=== PATIENT | male | born 1980 | race Caucasian/White ===

== ENCOUNTER 2018-10-31 06:03 | Day surgery (SDC) | payer OTHER ==
[2018-10-26 13:31] VITALS: BMI 34.8
--- NOTE | 2018-10-30 09:01 | HP ---
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 He has had no specific injury. He has had persistent symptoms despite restriction of activities, anti-inflammatory medications, and splinting. His symptoms are now interfering with day-to-day activities and also sleeping. PAST MEDICAL HISTORY: The patient is otherwise in good health. He does have a history of some neck pain, radiating into his right shoulder, but this is relatively minor. He has history of high cholesterol. CURRENT MEDICATIONS: Include: 1. Lipitor. 2. Meloxicam. 3. Finasteride. ALLERGIES: HE HAS NO KNOWN ALLERGIES. FAMILY HISTORY: Otherwise unremarkable. SOCIAL HISTORY: Otherwise unremarkable. REVIEW OF SYSTEMS: Otherwise unremarkable. PHYSICAL EXAMINATION: GENERAL: Reveals a healthy male. HEENT: Unremarkable. NECK: Supple. CHEST: Clear. HEART: Regular rate and rhythm. ABDOMEN: Soft, nontender. RECTAL: Deferred. GENITAL: Deferred. EXTREMITIES: Pertinent findings related to the right wrist. There is no swelling. There is no atrophy. There are no open wounds. There is no point tenderness. There is full range of motion. Motor exam is intact. There is subjective numbness in median nerve distribution. There is a negative Tinel sign and positive Phalen's test. There is good capillary refill and palpable distal pulses. DIAGNOSTIC STUDIES: Electrodiagnostic studies reveal [id number] right carpal tunnel syndrome and some evidence of chronic right C5 radiculopathy without nerve denervation. IMPRESSION: The right carpal tunnel syndrome, possible component of cervical radiculopathy. PLAN: Endoscopic possible open right carpal tunnel release. The nature of the surgery, length of recovery, potential complications such as infection, loss of motion, incomplete relief, nerve injury, recurrence, need for additional treatment, repeat surgery were discussed in detail. He would require further evaluation and workup, if he is still experiencing symptoms related to his cervical spine. Job ID: [id number]
[2018-10-31] MEDS ORDERED: ceFAZolin Sodium 2 GM/100 ML BAG ONE (06:35)
[2018-10-31] MEDS ORDERED: Lidocaine 1% (PF) 30 ML VIAL ONE (06:40)
[2018-10-31] MEDS ORDERED: Midazolam HCl 2 mg/2 ml Vial ONE (07:33)
[2018-10-31] MEDS ORDERED: Fentanyl 100 MCG/2 ML VIAL ONE (07:33)
--- NOTE | 2018-10-31 11:19 | OP ---
DATE OF PROCEDURE: 10/31/2018 ANESTHESIA: General plus local. PREOPERATIVE DIAGNOSIS: Right carpal tunnel syndrome. POSTOPERATIVE DIAGNOSIS: Right carpal tunnel syndrome. PROCEDURE: Right endoscopic carpal tunnel release. DESCRIPTION OF PROCEDURE: After satisfactory anesthesia was in induced supine position, the patient was prepped and draped in routine manner. A field block with 1% plain lidocaine was accomplished with 10 mL. The right arm was elevated. Esmarch bandage and the tourniquet inflated to 250 mmHg. A 2 cm transverse incision was made in proximal wrist flexor crease. This was carried down through the subcutaneous tissues and bleeding points controlled with Bovie cautery. Using sharp and blunt dissection, a distally based flap at the deep forearm fascia was developed and retracted distally. Palmaris longus tendon was retracted radially. Proximal edge of the deep forearm fascia was split under direct visualization with small scissors to make sure there was no proximal impingement of the median nerve. Synovial elevator was introduced beneath the transverse carpal ligament and the synovium was cleaned from the under surface. Carpal tunnel dilators were inserted. The [employer] endoscopic carpal tunnel system was introduced beneath the transverse carpal ligament in line with the ring finger. . The distal edge of the ligament was easily identified and then divided in a distal to proximal direction by pulling the trigger of the assembly and engaging the knife and withdrawing the scope proximally. This was done at several stages to make sure there was complete division of the transverse carpal ligament, which was documented with the video printer. After withdrawing the scope, a carpal tunnel dilator could be inserted into the carpal tunnel and there was marked improved passage and subcutaneous position of the instrument. The scope was reintroduced into the carpal tunnel. There was wide separation of the two leaves of the transverse carpal ligament. The tourniquet was released after 6 minutes. There was no excessive bleeding when the scope was withdrawn. The wound was irrigated and then closed with running subcuticular 3-0 nylon. A sterile dressing was applied and the patient immobilized in a Velcro wrist splint. He was awakened and taken to the operating room in stable condition. There were no apparent intraoperative complications. The estimated blood loss was negligible. The patient will be discharged home in satisfactory condition with an ice elevation and given written wound care instructions. He was given prescription for [place] 5, 24 tablets. He will be rechecked in my office in 10 to 14 days or sooner if there are any problems prior to that time. Job ID: [id number]
[2018-10-31] MEDS ORDERED: PROPOFOL 200 MG/20 ML VIAL ONE (15:08)
[2018-10-31] MEDS ORDERED: Lidocaine 1% PF 5 ML VIAL ONE (15:08)
[2018-10-31] MEDS ORDERED: Ondansetron PF 4 MG/2 ML Vial ONE (15:08)
== END 2018-10-31 09:18 | disposition home or self-care (01) ==
LOC: SDC 06:03
PROVIDERS: ATTEND Orthopaedic Surgery
PROC: 01N54ZZ Release Median Nerve, Percutaneous Endoscopic Approach (ICD-10-PCS; principal; 2018-10-31)
DX: G56.01 Carpal tunnel syndrome, right upper limb (principal); E78.00 Pure hypercholesterolemia, unspecified; Z79.899 Other long term (current) drug therapy
CPT/HCPCS: J0690; J2001; J2250; J2405; J2704; J3010

== ENCOUNTER 2021-09-06 14:48 | Outpatient (CLI) | payer BC ==
[2021-09-06 15:35] LABS: #Basophils 0.1 10x3/uL (0.0-0.2); #Eosinphils 0.2 10x3/uL (0.0-0.5); #Monocytes 0.8 10x3/uL (0.0-1.1); #Neutrophils 4.2 10x3/uL (1.5-8.4); %Basophils 0.6 % (0.0-2.0); %Lymphocytes 34.9 % (18.0-47.0); %Monocytes 9.7 % (0.0-10.0); %Neutrophils 52.4 % (40.0-75.0); Hemoglobin 15.9 g/dL (13.5-17.5); Mean Corpuscular HGB CONC 34.3 g/dL (32.0-36.0); Mean Corpuscular Hemoglobin 32.6 pg (27.0-33.0); Mean Corpuscular Volume 94.9 fl (81.2-95.1); Mean Platelet Volume 9.7 fl (7.4-10.4); Platelet Count 304 10x3/uL (150-450); RBC Distribution Width 13.2 % (11.5-14.5); Red Blood Cell (RBC) Count 4.88 10x6/uL (4.32-5.72); White Blood Cell (WBC) Count 8.1 10x3/uL (3.5-10.5)
[2021-09-07 09:09] LABS: SARS-CoV-2 PCR by NAA Not Detected (NotDetected)
== END 2021-09-06 14:49 | disposition home or self-care (01) ==
LOC: LABBT 14:48
PROVIDERS: ATTEND Orthopaedic Surgery
DX: Z01.812 Encounter for preprocedural laboratory examination (principal); S46.212A Strain of muscle, fascia and tendon of other parts of biceps, left arm, initial encounter; Z20.822 Contact with and (suspected) exposure to COVID-19
CPT/HCPCS: 85025; U0003; U0005

== ENCOUNTER 2021-09-10 13:29 | Outpatient (CLI) | payer BC ==
[2021-09-10 23:49] LABS: SARS-CoV-2 PCR by NAA Not Detected (NotDetected)
== END 2021-09-10 13:30 | disposition home or self-care (01) ==
LOC: LABBT 13:29
PROVIDERS: ATTEND Orthopaedic Surgery
DX: Z01.818 Encounter for other preprocedural examination (principal); S46.212A Strain of muscle, fascia and tendon of other parts of biceps, left arm, initial encounter; Z20.822 Contact with and (suspected) exposure to COVID-19
CPT/HCPCS: 93005; 93010; U0003; U0005

== ENCOUNTER 2021-09-14 06:11 | Day surgery (SDC) | payer BC ==
[2021-09-02 16:59] VITALS: BMI 36.2
[2021-09-14] MEDS ORDERED: Midazolam HCl 2 mg/2 ml Vial ONE (07:40)
[2021-09-14] MEDS ORDERED: Fentanyl 100 MCG/2 ML VIAL ONE ×2 (07:40→08:39)
[2021-09-14] MEDS ORDERED: ceFAZolin 2 GM/Dextrose 50 ML IVPB ONE (08:44)
[2021-09-14] MEDS ORDERED: Lidocaine 1% PF 5 ML VIAL ONE (09:00)
[2021-09-14] MEDS ORDERED: PROPOFOL 200 MG/20 ML VIAL ONE (09:00)
[2021-09-14] MEDS ORDERED: Bupivacaine HCl 0.5%/Epinephrine 1:200,000/PF 30 ml Vial ONE (09:00)
[2021-09-14] MEDS ORDERED: Ondansetron PF 4 MG/2 ML Vial ONE (09:00)
[2021-09-14] MEDS ORDERED: Dexamethasone 20 MG/5 ML VIAL ONE (09:00)
== END 2021-09-14 14:00 | disposition home or self-care (01) ==
LOC: SDC 06:11
PROVIDERS: ATTEND Orthopaedic Surgery
PROC: 3E0T3BZ Introduction of Anesthetic Agent into Peripheral Nerves and Plexi, Percutaneous Approach (ICD-10-PCS; principal; 2021-09-14)
PROC: 0LM40ZZ Reattachment of Left Upper Arm Tendon, Open Approach (ICD-10-PCS; principal; 2021-09-14)
DX: S46.212A Strain of muscle, fascia and tendon of other parts of biceps, left arm, initial encounter (principal); E78.00 Pure hypercholesterolemia, unspecified; Z79.899 Other long term (current) drug therapy; X50.0XXA Overexertion from strenuous movement or load, initial encounter
CPT/HCPCS: 76000; C1713; J0690; J2250; J3010